=== PATIENT | female | born 1965 | race African-American/Black ===

== ENCOUNTER 2018-05-30 07:35 | Day surgery (SDC) | payer OTHER ==
--- NOTE | 2018-05-30 09:28 | OP ---
DATE OF PROCEDURE: 05/30/2018 PROCEDURE PERFORMED: Colonoscopy (screening). INDICATION FOR PROCEDURE: Screening for malignant neoplasm of the colon. DESCRIPTION OF PROCEDURE: After the risks and benefits of the procedure were explained to the patient including risks of bleeding, infection, perforation, reactions to anesthesia, aspiration, and/or pain, informed consent was obtained. The patient was then taken to the endoscopy suite, where deep sedation was administered via propofol and anesthesia support. Once adequate sedation was achieved, the standard colonoscope was introduced into the rectum and advanced to the cecum with some difficulty requiring manual abdominal pressure to facilitate passage of the scope. The quality of the prep was excellent. The patient tolerated the procedure well with no immediate perioperative complications. Upon completion of the procedure, all equipment was removed from the patient and the patient was taken to Day Stay in satisfactory condition. FINDINGS: Digital rectal exam, normal. Colon findings: Normal-appearing mucosa was seen at the ileocecal valve and appendiceal orifice. Normal-appearing mucosa was also seen in the cecum, ascending colon, transverse colon, and descending colon. A single diverticula was seen within the sigmoid colon, but did not have any associated surrounding erythema or stenosis. Otherwise, the remainder of the mucosa in the cecum was normal. Normal-appearing mucosa was also seen in the rectum with normal findings on rectal retroflexion. IMPRESSION: 1. Mild sigmoid diverticulosis. 2. Otherwise, normal colonoscopy. RECOMMENDATIONS: 1. Would repeat the colonoscopy in 10 years as part of screening for malignant neoplasm of the colon in an average risk patient. 2. Would have the patient follow up in the GI clinic as needed. Job ID: [id number]
[2018-05-30] MEDS ORDERED: Lidocaine 1% PF 5 ML VIAL ONE (14:17)
[2018-05-30] MEDS ORDERED: PROPOFOL 200 MG/20 ML VIAL ONE (14:17)
[2018-05-30] MEDS ORDERED: Ondansetron PF 4 MG/2 ML Vial ONE (14:17)
== END 2018-05-30 09:50 | disposition home or self-care (01) ==
LOC: EEVIPCON 07:35 → SDC 07:35
PROVIDERS: ATTEND Internal Medicine
PROC: 0DJD8ZZ Inspection of Lower Intestinal Tract, Via Natural or Artificial Opening Endoscopic (ICD-10-PCS; principal; 2018-05-30)
DX: Z12.11 Encounter for screening for malignant neoplasm of colon (principal); K57.30 Diverticulosis of large intestine without perforation or abscess without bleeding; F41.9 Anxiety disorder, unspecified; E11.9 Type 2 diabetes mellitus without complications; E78.00 Pure hypercholesterolemia, unspecified; I10 Essential (primary) hypertension; Z90.711 Acquired absence of uterus with remaining cervical stump; Z90.49 Acquired absence of other specified parts of digestive tract; Z91.040 Latex allergy status; Z98.890 Other specified postprocedural states
CPT/HCPCS: J2001; J2405; J2704

== ENCOUNTER 2021-08-08 09:34 | Outpatient (CLI) | payer OTHER | END 2021-08-08 09:35 | disposition home or self-care (01) | LOC: SCSMRI 09:34 | PROVIDERS: ATTEND Nurse Practitioner Family | DX: M54.12 Radiculopathy, cervical region (principal); M43.12 Spondylolisthesis, cervical region; W19.XXXA Unspecified fall, initial encounter | CPT/HCPCS: 72141 ==

== ENCOUNTER 2021-08-16 11:25 | Outpatient (CLI) | payer BC ==
[2021-08-16 22:07] LABS: SARS-CoV-2 PCR by NAA Not Detected (NotDetected)
== END 2021-08-16 11:26 | disposition home or self-care (01) ==
LOC: LABBT 11:25
PROVIDERS: ATTEND Internal Medicine
DX: Z20.822 Contact with and (suspected) exposure to COVID-19 (principal)
CPT/HCPCS: U0003; U0005

== ENCOUNTER 2021-08-21 06:39 | Day surgery (SDC) | payer BC ==
[2021-08-16 14:07] VITALS: BMI 48.0
[2021-08-21] MEDS ORDERED: Lidocaine 1% PF 5 ML VIAL ONE (07:57)
[2021-08-21] MEDS ORDERED: PROPOFOL 200 MG/20 ML VIAL ONE (07:57)
== END 2021-08-21 09:35 | disposition home or self-care (01) ==
LOC: SDC 06:39
PROVIDERS: ATTEND Internal Medicine
PROC: 0DJ08ZZ Inspection of Upper Intestinal Tract, Via Natural or Artificial Opening Endoscopic (ICD-10-PCS; principal; 2021-08-21)
DX: R11.2 Nausea with vomiting, unspecified (principal); R10.13 Epigastric pain; K22.89 Other specified disease of esophagus; K21.9 Gastro-esophageal reflux disease without esophagitis; K59.00 Constipation, unspecified; R19.7 Diarrhea, unspecified; M19.90 Unspecified osteoarthritis, unspecified site; E11.9 Type 2 diabetes mellitus without complications; I10 Essential (primary) hypertension; E78.00 Pure hypercholesterolemia, unspecified; E66.9 Obesity, unspecified; Z68.42 Body mass index [BMI] 45.0-49.9, adult; Z79.84 Long term (current) use of oral hypoglycemic drugs; Z79.899 Other long term (current) drug therapy; Z91.040 Latex allergy status
CPT/HCPCS: J2704